=== PATIENT | male | born 1955 | race Hispanic/Latino ===

== ENCOUNTER 2021-10-17 22:26 | Emergency (ER) | payer MEDICARE, OTHER ==
[~2021-10-17] VITALS: Ht 165.1 cm; Wt 86.6 kg
[2021-10-17 22:28] VITALS: BP 159/96
[2021-10-17] MEDS ORDERED: CYCLOBENZAPRINE HCL 10 MG TABLET PO ONE (23:00)
[2021-10-17] MEDS ORDERED: KETOROLAC 60 MG VIAL (30MG/ML) IM ONE ×2 (23:00→23:15)
[2021-10-17] MEDS ORDERED: CYCLOBENZAPRINE HCL 10 MG TABLET ONE (23:16)
[2021-10-17] MEDS ORDERED: META800T72 PO (23:31)
[2021-10-17] MEDS ORDERED: NAPR-1180 PO (23:31)
== END 2021-10-17 23:44 | disposition home or self-care (01) ==
LOC: EDH 22:26
DX: S29.012A Strain of muscle and tendon of back wall of thorax, initial encounter (principal); I10 Essential (primary) hypertension; Z79.899 Other long term (current) drug therapy; V49.49XA Driver injured in collision with other motor vehicles in traffic accident, initial encounter; Y93.89 Activity, other specified; Y92.413 State road as the place of occurrence of the external cause; Y99.8 Other external cause status
CPT/HCPCS: 72072; J1885